=== PATIENT | male | born 1930 | race African-American/Black ===

== ENCOUNTER → 2020-08-02 | Outpatient (CLI) | payer MEDICARE, OTHER ==
[~2020-08-02] MED LIST: BARIUM SULFATE 176 GM SUSP.RECON ONE; EZ-HD SUSPENSION(BARIUM SULFATE 340GM) PO ONE; METO-385 PO
== END | disposition home or self-care (01) ==
LOC: RAD 09:24
PROVIDERS: ATTEND Specialist
DX: K22.4 Dyskinesia of esophagus (principal); R13.10 Dysphagia, unspecified
CPT/HCPCS: 74220